=== PATIENT | female | born 2000 | race Hispanic/Latino ===

== ENCOUNTER 2021-06-16 08:10 | Emergency (ER) | payer SELFPAY ==
[2021-06-16 08:14] VITALS: BP 163/76
[2021-06-16] MEDS ORDERED: methylPREDNISolone Sod Succinate 125 MG/2 ML INJ IM ONE (08:33)
[2021-06-16] MEDS ORDERED: IPRATROPIUM 0.02% NEBU 2.5 ML IH ONE (08:33)
[2021-06-16] MEDS ORDERED: ALBUTEROL 2.5 MG/3 ML NEBU IH ONE (08:33)
--- NOTE | 2021-06-16 09:30 | Emergency Department Report ---
ED Asthma HPI - General Chief Complaint: Adult Asthma Stated Complaint: ASTHMA Time Seen by Provider: 06/16/21 08:31 Source: patient Mode of arrival: Ambulatory Limitations: No Limitations - History of Present Illness Initial Comments: 21-year-old morbid obese female presents to the emergency room stating her asthma is flaring up and she has been wheezing since 4 AM. Patient states that she is ran out of her Symbicort. She denies any chest pain states she has some mild shortness of breath secondary to her asthma. She states she has never been intubated but has been hospitalized for asthma. She does have a primary care provider at [facility]. She will reports she is allergic to penicillin and sulfur. Complaint: "asthma attack" - Related Data Previous Rx's Medication Instructions Recorded Last Taken Type Budesonide/Formoterol Fumarate 2 puff IH TID PRN #1 device 06/16/21 Unknown Rx [Symbicort 80-4.5 Mcg Inhaler] Prednisone [predniSONE 10 mg 10 mg PO .TAPER #1 06/16/21 Unknown Rx (6-Day Pack, 21 Tabs)] Allergies Allergy/AdvReac Type Severity Reaction Status Date / Time Penicillins Allergy Severe Anaphylaxis Verified 06/16/21 08:32 Sulfa (Sulfonamide Allergy Severe Anaphylaxis Verified 06/16/21 08:32 Antibiotics) ED Review of Systems ROS: Stated complaint: ASTHMA Other details as noted in HPI ED Past Medical Hx - Medications Home Medications: Home Medications Medication Instructions Recorded Confirmed Last Taken Type Budesonide/Formoterol Fumarate 2 puff IH TID PRN #1 device 06/16/21 Unknown Rx [Symbicort 80-4.5 Mcg Inhaler] Prednisone [predniSONE 10 mg 10 mg PO .TAPER #1 06/16/21 Unknown Rx (6-Day Pack, 21 Tabs)] ED Physical Exam - General Limitations: No Limitations General appearance: alert, in no apparent distress, in distress, obese - Head Head exam: Present: atraumatic, normocephalic - Eye Eye exam: Present: normal appearance - ENT ENT exam: Present: mucous membranes moist - Neck Neck exam: Present: normal inspection - Respiratory Respiratory exam: Present: wheezes, rhonchi, other (Audible wheezing). Absent: respiratory distress - Cardiovascular Cardiovascular Exam: Present: regular rate, normal rhythm. Absent: systolic murmur, diastolic murmur, rubs, gallop - GI/Abdominal GI/Abdominal exam: Present: soft, normal bowel sounds - Extremities Exam Extremities exam: Present: normal inspection - Back Exam Back exam: Present: normal inspection - Neurological Exam Neurological exam: Present: alert, oriented X3 - Psychiatric Psychiatric exam: Present: normal affect, normal mood - Skin Skin exam: Present: warm, dry, intact, normal color. Absent: rash ED Course Vital Signs 06/16/21 08:12 Temperature 99 F Pulse Rate 115 H Respiratory 20 Rate Blood Pressure 163/76 [Left] O2 Sat by Pulse 100 Oximetry ED Medical Decision Making - Medical Decision Making 21-year-old morbid obese female presents to the emergency room stating her asthma is flaring up and she has been wheezing since 4 AM. Patient states that she is ran out of her Symbicort. She denies any chest pain states she has some mild shortness of breath secondary to her asthma. She states she has never been intubated but has been hospitalized for asthma. She does have a primary care provider at [facility] in [facility]. She will reports she is allergic to penicillin and sulfur. Patient is given Solu-Medrol IM albuterol 10 Atrovent 1. Reevaluated patient still has some mild rhonchus wheezing at the bases offered to give her another treatment she declined and states that she has to get back home as she is not supposed to be out. Discussed with patient that I will refill her Symbicort she can continue with her nebs at home. Follow-up with her primary care provider. Return back to the emergency room with any severe symptoms. Critical care attestation.: If time is entered above; I have spent that time in minutes in the direct care of this critically ill patient, excluding procedure time. ED Disposition Clinical Impression: Asthma exacerbation attacks Disposition: HOME / SELF CARE / HOMELESS Is pt being admited?: No Does the pt Need Aspirin: No Condition: Stable Instructions: Asthma, Adult, [id number] Additional Instructions: Use inhaler as prescribed. Complete prednisone taper as prescribed. Follow-up with your primary care provider Prescriptions: Prednisone [predniSONE 10 mg (6-Day Pack, 21 Tabs)] 10 mg PO .TAPER #1 Budesonide/Formoterol Fumarate [Symbicort 80-4.5 Mcg Inhaler] 2 puff IH TID PRN #1 device PRN Reason: Wheezing Referrals: [facility] [Provider Group] - 3-5 Days Time of Disposition: 09:33
== END 2021-06-16 10:08 | disposition home or self-care (01) ==
LOC: ED 08:10
DX: J45.901 Unspecified asthma with (acute) exacerbation (principal); Z88.0 Allergy status to penicillin; Z88.2 Allergy status to sulfonamides
CPT/HCPCS: 94640; 99282; J2930